=== PATIENT | female | born 1965 | race Caucasian/White ===

== ENCOUNTER 2018-08-09 00:57 | Outpatient (CLI) | payer BC, SELFPAY ==
[2018-08-09 10:31] LABS: ALT 38 U/L (12-78); AST 19 U/L (15-37); Albumin 3.8 g/dL (3.4-5.0); Alkaline Phosphatase 68 U/L (46-116); Anion Gap 9.4 mmol/L (3-11); BUN 17 mg/dL (7-18); Bilirubin, Total 0.4 mg/dL (0.2-1.0); CO2 29.6 mmol/L (21.0-32.0); CREATININE 0.73 mg/dL (0.55-1.02); Calcium 9.6 mg/dL (8.5-10.1); Chloride 105 mmol/L (98-107); Cholesterol 199 mg/dL (50-200); Glucose 87 mg/dL (70-100); HDL Cholesterol 73 mg/dL (40-60); LDL CHOLESTEROL 107 mg/dL (<100); Potassium 4.8 mmol/L (3.5-5.1); Sodium 144 mmol/L (136-145); Total Protein 7.5 g/dL (6.4-8.2); Triglyceride 52 mg/dL (30-150)
== END 2018-08-09 01:17 ==
DX: Z00.00 Encounter for general adult medical examination without abnormal findings (principal); I10 Essential (primary) hypertension; E78.5 Hyperlipidemia, unspecified; F17.200 Nicotine dependence, unspecified, uncomplicated; B00.9 Herpesviral infection, unspecified
CPT/HCPCS: 36415; 80053; 80061; 83721

== ENCOUNTER 2018-09-16 00:56 | Outpatient (CLI) | payer BC, SELFPAY ==
--- NOTE | 2018-09-16 07:30 | DI.MAMMO_ITS ---
SYMPTOM/DIAGNOSIS: SCREENING, Z12.31 MAMMOGRAMS: Mammograms were interpreted according to the usual protocol including computer analysis with CAD system, tomosynthesis and C view imaging. Comparison is made with exams from [id number]. The breasts are composed of scattered fibroglandular densities, breast density, Category B. No suspicious masses or suspicious microcalcifications are seen. There has been no significant change. IMPRESSION: Category 1, negative mammogram. Yearly screening mammography is recommended. [facility] ASSESSMENT OF FINDINGS: Negative. Category 1. Patient will receive a letter notifying them of these results. BI-RADS category B. There are scattered areas of fibroglandular density.
== END 2018-09-16 01:16 ==
DX: Z12.31 Encounter for screening mammogram for malignant neoplasm of breast (principal)
CPT/HCPCS: 77063; 77067

== ENCOUNTER 2018-11-01 08:30 | Emergency (ER) | payer BC, SELFPAY ==
[2018-11-01 08:38] VITALS: BP 141/89; PULSE 87; RESP 16; TEMP 36.7; O2SAT 100
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
--- NOTE | 2018-11-01 08:50 | DI.RAD_ITS ---
SYMPTOM/DIAGNOSIS: RIGHT SHOULDER PAIN S/P FALL RIGHT SHOULDER: There is a fracture of the distal clavicle with only slight displacement. The AC joint and glenohumeral joint appear intact. There are some degenerative changes of the glenoid as well as spurring at the undersurface of the acromion. The visualized portions of the right ribs appear intact. No pneumothorax is seen. IMPRESSION: Distal clavicle fracture.
--- NOTE | 2018-11-01 08:50 | DI.RAD_ITS ---
SYMPTOM/DIAGNOSIS: RIGHT UPPER CHEST PAIN, S/P FALL, SMALL ABRASION PA CHEST: The heart size is normal. No pneumothorax or rib fracture is seen. The lungs appear clear. No free air is seen beneath the diaphragm. IMPRESSION: No acute abnormality.
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
--- NOTE | 2018-11-01 09:21 | DI.CT_ITS ---
SYMPTOM/DIAGNOSIS: RIGHT SIDED CHEONDOISM PAIN, ABRASION S/P FALL NONCONTRAST HEAD CT: There is a scalp hematoma in the right frontal region. There is no evidence of skull fracture, or intracranial hemorrhage. The ventricles are normal in size. There is mild mucous retention at the floor of the left maxillary sinus. The orbits are unremarkable. The mastoid air cells appear clear. IMPRESSION: Scalp hematoma. No evidence of skull fracture or intracranial hemorrhage. CT CERVICAL SPINE: No fracture or subluxation is seen. There are mild degenerative disc changes at C6-7. There is no paraspinal hematoma. No pneumothorax is seen at the lung apices. IMPRESSION: Mild degenerative changes. No acute abnormality.
--- NOTE | 2018-11-01 09:42 | DI.VRAD_ITS ---
EXAM: CT Head Without Contrast EXAM DATE/TIME: 11/01/2018 8:56 AM CLINICAL HISTORY: 53 years old, female; Headache not specified; Patient HX: Right sided neck pain and arm tingling. ; Additional info: Right sided sikh pain, abrasion. TECHNIQUE: Imaging protocol: Axial computed tomography images of the head without contrast. Coronal and sagittal reformatted images were created and reviewed. Radiation optimization: All CT scans at this facility use at least one of these dose optimization techniques: automated exposure control; mA and/or kV adjustment per patient size (includes targeted exams where dose is matched to clinical indication); or iterative reconstruction. COMPARISON: No relevant prior studies available. FINDINGS: Brain: Normal. No hemorrhage. Unremarkable white matter. No mass effect. Ventricles: Normal. No ventriculomegaly. Bones/joints: No depressed calvarial fracture. Sinuses: Visualized sinuses are unremarkable. No fluid levels. Mastoid air cells: Visualized mastoid air cells are well aerated. No mastoid effusion. Soft tissues: Soft tissue hematoma over the right frontal bone measures 7 x 2 mm. IMPRESSION: 1. Soft tissue hematoma over the right frontal bone measures 7 x 2 mm. 2. No depressed calvarial fracture. 3. No acute intracranial hemorrhage. EXAM: CT Cervical Spine Without Contrast EXAM DATE/TIME: 11/01/2018 8:56 AM CLINICAL HISTORY: 53 years old, female; Headache not specified; Patient HX: Right sided neck pain and arm tingling. ; Additional info: Right sided sikh pain, abrasion. TECHNIQUE: Imaging protocol: Axial computed tomography images of the cervical spine without contrast. Coronal and sagittal reformatted images were created and reviewed. Radiation optimization: All CT scans at this facility use at least one of these dose optimization techniques: automated exposure control; mA and/or kV adjustment per patient size (includes targeted exams where dose is matched to clinical indication); or iterative reconstruction. COMPARISON: No relevant prior studies available. FINDINGS: Vertebrae: No acute fracture. Discs/Spinal canal/Neural foramina: Small disc osteophyte complex at C6-7. Soft tissues: Unremarkable. Lungs: Lung apices are normal. IMPRESSION: No acute fracture. Dictated and Authenticated by: Dionne Browning MD. Ordering:AYAN Bass MD
--- NOTE | 2018-11-01 09:44 | DI.VRAD_ITS ---
EXAM: XR Right Shoulder EXAM DATE/TIME: 11/01/2018 8:53 AM CLINICAL HISTORY: 53 years old, female; Other: Right shoulder pain S/P fall; Additional info: Right sided restorationist pain, abrasion. TECHNIQUE: Imaging protocol: XR Right shoulder. Views: 2 or more views. COMPARISON: No relevant prior studies available. FINDINGS: Bones/joints: Transverse fracture through the distal clavicle, with mild distraction and displacement. No extension into the acromioclavicular articulation. Glenohumeral joint intact. Soft tissues: Normal. IMPRESSION: Transverse fracture through the distal clavicle, with mild distraction and displacement. No extension into the acromioclavicular articulation. Dictated and Authenticated by: Dionne Browning MD. Ordering:AYAN Bass MD
--- NOTE | 2018-11-01 09:45 | DI.VRAD_ITS ---
EXAM: XR Chest, 1 View EXAM DATE/TIME: 11/01/2018 8:53 AM CLINICAL HISTORY: 53 years old, female; Other: Right upper chest pain S/P fall. Small abrasion; Additional info: Right sided jewish pain, abrasion. TECHNIQUE: Imaging protocol: XR of the chest, 1 view. COMPARISON: No relevant prior studies available. FINDINGS: Lungs: Unremarkable. No consolidation. Pleural space: Unremarkable. No pleural effusion. No pneumothorax. Heart/Mediastinum: Unremarkable. No cardiomegaly. Bones/joints: Distal right clavicular fracture as detailed on the shoulder report. IMPRESSION: Distal right clavicular fracture as detailed on the shoulder report. Dictated and Authenticated by: Dionne Browning MD. Ordering:AYAN Bass MD
== END 2018-11-01 10:00 | disposition home or self-care (01) ==
PROVIDERS: Emergency Provider Physician Assistant
DX: S42.031A Displaced fracture of lateral end of right clavicle, initial encounter for closed fracture (principal); S09.90XA Unspecified injury of head, initial encounter; S00.01XA Abrasion of scalp, initial encounter; V58.4XXA Person boarding or alighting a pick-up truck or van injured in noncollision transport accident, initial encounter; M54.2 Cervicalgia; F10.920 Alcohol use, unspecified with intoxication, uncomplicated
CPT/HCPCS: 99284; 70450; 71045; 72125; 73030; L0172; L3650

== ENCOUNTER 2018-11-17 09:48 | Outpatient (CLI) | payer BC, SELFPAY ==
--- NOTE | 2018-11-17 08:30 | DI.RAD_ITS ---
SYMPTOMS/DIAGNOSIS: F/U FRACTURE RIGHT CLAVICLE: Two views. Comparison 11/01/18. There is again seen a distal right clavicular fracture. The distal fracture fragment is superiorly displaced two-thirds of a shafts width relative to the clavicle. This displacement is new compared to the prior examination from 11/01/18. IMPRESSION: Distal right clavicular fracture with increased displacement compared to the prior examination.
== END 2018-11-17 10:08 ==
PROVIDERS: Visit Provider Student in an Organized Health Care Education/Training Program
DX: S42.031G Displaced fracture of lateral end of right clavicle, subsequent encounter for fracture with delayed healing (principal)
CPT/HCPCS: 73000

== ENCOUNTER 2018-12-15 10:02 | Outpatient (CLI) | payer BC, SELFPAY ==
--- NOTE | 2018-12-15 09:40 | DI.RAD_ITS ---
SYMPTOM/DIAGNOSIS: F/U RT DISTAL CLAVICLE FRACTURE RIGHT CLAVICLE: 12/15 A single view is obtained and shows fracture of the distal clavicle which appears to be healing with no significant interval change in alignment in comparison with examination of 11/17/18. There is dense callus visible at the fracture site.
== END 2018-12-15 10:22 ==
PROVIDERS: Visit Provider Student in an Organized Health Care Education/Training Program
DX: S42.001A Fracture of unspecified part of right clavicle, initial encounter for closed fracture (principal); X58.XXXA Exposure to other specified factors, initial encounter
CPT/HCPCS: 73000

== ENCOUNTER 2019-03-03 10:55 | Outpatient (CLI) | payer BC, SELFPAY ==
--- NOTE | 2019-03-03 10:21 | DI.RAD_ITS ---
EXAM: XR FINGER LT INDEX INDICATION: f/u fx. COMPARISON: FINGER(S)- LEFT-2+VIEW from 02/28/2019 TECHNIQUE: 2D digital imaging was performed. FINDINGS: There is again seen is amputation of the distal half of the distal phalanx of the left index finger. There is a comminuted fracture of the digital proximal half of the distal phalanx. This appears unc hanged. There is a lucency seen in the head of the middle phalanx of the index finger suspicious for nondisplaced fracture. There is soft tissue swelling of the index finger. Overall there does not a ppear to be any significant change in appearance of the left index finger compared to the prior exami [facility]. IMPRESSION: Stable fracture and amputation involving the left index finger.
== END 2019-03-03 11:15 ==
PROVIDERS: Visit Provider Orthopaedic Surgery
DX: S68.621D Partial traumatic transphalangeal amputation of left index finger, subsequent encounter (principal); S62.631D Displaced fracture of distal phalanx of left index finger, subsequent encounter for fracture with routine healing
CPT/HCPCS: 73140

== ENCOUNTER 2019-03-24 10:10 | Outpatient (CLI) | payer BC, SELFPAY ==
--- NOTE | 2019-03-24 09:47 | DI.RAD_ITS ---
EXAM: XR FINGER LT INDEX INDICATION: s/p traumatic amputation. COMPARISON: XR FINGER LT INDEX from 03/03/2019 TECHNIQUE: 2D digital imaging was performed. FINDINGS: There has been no change in the amputation of the distal half of the distal phalanx or change in the appearance of the surrounding soft tissues.
== END 2019-03-24 10:30 ==
PROVIDERS: Visit Provider Physician Assistant
DX: S68.62 Partial traumatic transphalangeal amputation of other and unspecified finger (principal)
CPT/HCPCS: 73140

== ENCOUNTER 2019-04-06 09:23 | Day surgery (SDC) | payer BC, SELFPAY ==
[2019-04-06] VITALS (7 sets, daily range): BP systolic 128–164; BP diastolic 90–118; PULSE 56–70; RESP 15–19; TEMP 36.4–36.8; O2SAT 97–100
[2019-04-06] MEDS: Lactated Ringers 1,000 ML 80 ML IV (10:13)
[2019-04-06] MEDS: ceFAZolin 2 GM/50 ML BAG IVPB (12:37)
[2019-04-06] MEDS: Bupivacaine 0.5% Pres-Free 30 ML VIAL (13:02)
--- NOTE | 2019-04-06 13:35 | PDOC.DSDIS_ITS ---
Discharge Plan Disposition Patient Disposition: HOME Condition: Good Discharge Details Reason For Visit: Revision amputation L IF Attending Provider: Sebastian Mortensen Primary Care Provider: Anjelica Vang Home Meds and New Rx's Prescriptions: New oxycodone-acetaminophen 5-325 mg tablet 1 tab PO Q6H PRN (Reason: pain) Qty: 14 RF: 0 No Action valacyclovir [Valtrex] 500 mg tablet 500 mg PO BID Qty: 10 RF: 6 ibuprofen 200 mg tablet 200 mg PO Q6H PRNRF: 0 acetaminophen [Tylenol Extra Strength] 500 mg Tablet 1,000 mg PO 4-6XD PRNRF: 0 Discharge Instructions Additional Instructions: Keep dressings dry and clean. Elevate L hand above heart level as much as possible overnite tonite. F/u with in one week for dressing change. Referrals: Sebastian Mortensen MD [ [facility] STAFF PHYSICIAN] - (f/u in one week.) Activity:: Activity as Tolerated Remove Dressings/Wound Care:: Do Not Remove Shower/Bathe:: Cover Diet:: As Tolerated Discharge Orders Discharge Orders: Discharge Order (Routine); Ordered 04/06/19 Ordered By: Sebastian Mortensen DS: Diagnosis Discharge Diagnosis (1) Partial traumatic amputation of finger through phalanx: Status: Acute
[2019-04-06] MEDS: oxyCODONE 5 mg/Acetaminophen 325 mg TAB 1 TAB PO (14:42)
--- NOTE | 2019-04-06 15:08 | ROE_ITS ---
DATE OF PROCEDURE: April 06, 2019 PREOPERATIVE DIAGNOSIS: Traumatic amputation left index finger through distal phalanx. POSTOPERATIVE DIAGNOSIS: Same. PROCEDURE: Revision of traumatic amputation of the left index finger. ANESTHESIA: General, Irwin Rubio CRNA SURGEON: Sebastian Mortensen M.D. INDICATIONS: This is a 53-year-old white female who sustained a traumatic amputation of the left ind ex finger through the distal phalanx approximately three weeks ago. This was treated initially at [facility] Emergency Room at [facility]. I have followed her since that time. She appeared to do well the first two weeks following her injury. However during the third week she developed severe pain. Examination showed a skin slough of the tip of the finger, resulting in exposed bone of the d istal phalanx fragment of the left index finger. Revision of the amputation by shortening the bone w as recommended to alleviate her pain and allow full healing. The risks and complications of the proc edure were explained to the patient in detail preoperatively. PROCEDURE: The patient was taken to the Operating Room on 04/06/19. She was placed supine on the ope rating table and a general anesthetic was administered. A proximal tourniquet was applied to the lef t upper arm and the left hand, wrist and forearm were prepped and draped free in the usual sterile fa shion. Under proximal tourniquet control, a distal flap was raised and circumferential sharp dissection was used to expose the distal fracture fragment of the distal phalanx. This fracture fragment was commin uted. I then excised the fragment, releasing the flexor profundus tendon from its insertion on the b ase of the fragment. At this point I thought that there was still too much tension on the skin flaps , so I shortened the middle phalanx by excising the distal condyles of the phalanx with a bone cutter and then smoothing it with a rongeur. Sharp dissection was used to remove all devitalized tissue fr om the skin edges. I was able to easily approximate the skin edges without tension using three inter rupted #3-0 nylon sutures. The wound was copiously irrigated with saline solution prior to closure. A digital block was then performed using 0.5% Marcaine solution for postoperative analgesia. The wo und was dressed with Xeroform gauze and then dressed with tube gauze. The tourniquet was released. The patient's anesthesia was reversed without complication and she was discharged to recovery room in good condition. The patient was discharged home from the Day Surgery Unit when fully recovered from her general anest hesia. She was given instructions to keep her dressings clean and dry for one week. She will follow -up in my office in one week for a dressing change and wound check. She will take Tylenol or ibuprof en for mild pain. I will give her a prescription for breakthrough pain of Oxycodone with APAP 5/325, one tablet every six hours, as needed.
== END 2019-04-06 15:25 | disposition home or self-care (01) ==
PROVIDERS: Visit Provider Orthopaedic Surgery
PROC: (CPT 26951; principal; 2019-04-06 10:45)
DX: S68.621A Partial traumatic transphalangeal amputation of left index finger, initial encounter (principal); X58.XXXA Exposure to other specified factors, initial encounter; G89.11 Acute pain due to trauma
CPT/HCPCS: 26951; J0690; J1100; J1885; J2250; J2405

== ENCOUNTER 2019-10-08 02:44 | Outpatient (CLI) | payer BC, SELFPAY ==
--- NOTE | 2019-10-08 07:43 | DI.MAMMO_ITS ---
EXAM: MG MAMMO SCREENING CLINICAL HISTORY: screening,Z12.39 TECHNIQUE: Mammograms were interpreted according to the usual protocol including computer analysis w [employer] CAD system, tomosynthesis and C-view imaging. COMPARISON: FINDINGS: The breasts are of moderate density with fairly symmetrical distribution of fibroglandular tissue. N o dominant mass or clumped microcalcification is identified in either breast. The current examinatio n is compared with previous examinations including September 2018 and there has been no gross interval sharma ge in appearance in comparison with the previous studies. IMPRESSION: No specific evidence of malignancy at this time. Routine screening examinations are suggested at yea rly intervals in this age group according to the ACS ACR guidelines. Category: BI-RADS Cat 1 - Negative Breast Density - Category B - Scattered areas of fibroglandular density
== END 2019-10-08 03:04 ==
DX: Z12.31 Encounter for screening mammogram for malignant neoplasm of breast (principal)
CPT/HCPCS: 77063; 77067

== ENCOUNTER 2019-10-08 03:16 | Outpatient (CLI) | payer BC, SELFPAY ==
[2019-10-08 08:18] LABS: ALT 36 U/L (14-59); AST 20 U/L (15-37); Albumin 3.8 g/dL (3.4-5.0); Alkaline Phosphatase 67 U/L (46-116); Anion Gap 7.2 mmol/L (3-11); BUN 20 mg/dL (7-18); Bilirubin, Total 0.4 mg/dL (0.2-1.0); CO2 28.8 mmol/L (21.0-32.0); CREATININE 0.98 mg/dL (0.55-1.02); Calcium 9.2 mg/dL (8.5-10.1); Calculated LDL 156 mg/dL (<100); Chloride 105 mmol/L (98-107); Cholesterol 259 mg/dL (<200); Glucose 103 mg/dL (74-106); HDL Cholesterol 76 mg/dL (40-60); Potassium 4.1 mmol/L (3.5-5.1); Sodium 141 mmol/L (136-145); Total Protein 7.3 g/dL (6.4-8.2); Triglyceride 139 mg/dL (<150)
== END 2019-10-08 03:36 ==
DX: E78.2 Mixed hyperlipidemia (principal); F32.9 Major depressive disorder, single episode, unspecified; F41.9 Anxiety disorder, unspecified; F51.04 Psychophysiologic insomnia; I10 Essential (primary) hypertension; E03.9 Hypothyroidism, unspecified
CPT/HCPCS: 36415; 80053; 80061

== ENCOUNTER 2020-04-04 08:14 | Emergency (ER) | payer BC, SELFPAY ==
--- NOTE | 2020-04-04 08:17 | W.ED.GENAD ---
Discharge Plan Disposition Patient Disposition: HOME Condition: Stable Discharge Details Clinical Impression: Chest wall injury Primary Care Provider: Anjelica Vang ED Provider: José Miguel Rosales Home Meds and New Rx's Prescriptions: Continued ibuprofen 200 mg tablet 200 mg PO Q6H PRNRF: 0 lisinopril-hydrochlorothiazide 20-25 mg tablet 1 tab PO DAILY Qty: 90 RF: 3 atorvastatin 10 mg tablet 10 mg PO QPM Qty: 90 RF: 3 sertraline 50 mg tablet 50 mg PO DAILY Qty: 90 RF: 3 valacyclovir [Valtrex] 500 mg tablet 500 mg PO BID Qty: 10 RF: 6 acetaminophen [Tylenol Extra Strength] 500 mg Tablet 1,000 mg PO 4-6XD PRNRF: 0 Discharge Instructions Instructions: Chest Wall Pain (ED) Additional Instructions: At this time x-rays are unremarkable. Gentle stretching as tolerated. Cool and/or warm compresses every 2 hours for 20 minutes. Incentive spirometer as directed. Advance activity as tolerated. Please watch for new or worsening symptoms and return to the ER for any concerns. I do recommend reaching out your primary care provider later today or tomorrow for outpatient reevaluation. Medical Decision Making 54-year-old female fell Saturday night injuring her anterior chest wall and her left posterior leg. She denies any LOC or any other distracting injuries. Denies headache, neck pain, numbness, tingling, weakness. She appears well, nontoxic. She has diffuse right-sided anterior chest wall as well as point sternal discomfort. There is no crepitus or ecchymosis. Skin is intact. Left lower extremity reveals diffuse posterior soft tissue discomfort but there is no bony point tenderness, shortening or rotation of the leg. She is able to ambulate without difficulty. We discussed options, will obtain x-ray of the chest and sternum. Low suspicion for pneumothorax, hip or pelvis fracture, etc. X-ray of the sternum and chest read by radiology as negative for acute disease process. Discussed results with patient. Will provide an incentive spirometer given she has chest discomfort that worsens with deep breaths. Discussed [id number]-[id number] medications such as Tylenol and/or Motrin, cool and/or warm compresses, gentle stretching. She was encouraged to return to the ER for new or worsening symptoms, otherwise recheck to her primary care provider for outpatient reevaluation. Upon discharge patient has no additional questions or concerns and is comfortable with this plan. Medical Records Medical records reviewed: Yes I reviewed the patient's medical records. HPI General Mode of arrival: ambulatory. Date/Time Provider Initiated Documentation: 04/04/20 08:14. Limitations to Documentation: no limitations. Information obtained by: patient. HPI Narrative: This is a 54-year-old female with history of hypertension, right clavicle fracture, anxiety, depression, presenting with anterior chest wall discomfort and posterior left leg discomfort that she sustained on Saturday. She reports that she slipped on Saturday falling forward, striking her anterior chest on the deck railing. She is unsure exactly how she injured her leg, whether she twisted it or the injury was sustained by striking the back. She does not recall striking her head but cannot not tell me with 100% certainty. She denies e, headache, neck pain, visual changes, shortness of breath, cough, abdominal pain, nausea, vomiting, change in bowel or bladder function, numbness, tingling, weakness. Patient is able to bear weight the pain is worse with movement in her leg. Pain in her leg is moderate. Pain in her chest is moderate-severe, worse with movement or taking a deep breath. She has been using hrni-cqn-[id number] medications with little relief. Related Data Home Medications Medication Instructions Recorded Confirmed ibuprofen 200 mg tablet 200 mg PO Q6H PRN 03/31/19 04/04/20 acetaminophen [Tylenol Extra 1,000 mg PO 4-6XD PRN 04/01/19 04/04/20 Strength] atorvastatin 10 mg tablet 10 mg PO QPM #90 tab 10/20/19 04/04/20 lisinopril 20 1 tab PO DAILY #90 tab 10/20/19 04/04/20 mg-hydrochlorothiazide 25 mg tablet sertraline 50 mg tablet 50 mg PO DAILY #90 tab 11/30/19 04/04/20 valacyclovir 500 mg tablet 500 mg PO BID #10 tab-cap 01/22/20 04/04/20 Previous Rx's Medication Instructions Recorded atorvastatin 10 mg tablet 10 mg PO QPM #90 tab 10/20/19 lisinopril 20 1 tab PO DAILY #90 tab 10/20/19 mg-hydrochlorothiazide 25 mg tablet sertraline 50 mg tablet 50 mg PO DAILY #90 tab 11/30/19 valacyclovir 500 mg tablet 500 mg PO BID #10 tab-cap 01/22/20 Allergies Allergy/AdvReac Type Severity Reaction Status Date / Time Sulfa (Sulfonamide Allergy SWELLING Verified 04/04/20 08:24 Antibiotics) General SLIM: 4 Review of Systems Constitutional Constitutional: Reports headache(s) Eyes Eyes: Denies change in vision ENT Ears, Nose, Mouth, and Throat: Reports headache(s) and Denies neck pain Cardiovascular Cardiovascular: Reports chest pain (Chest wall) and Denies dyspnea Respiratory Respiratory: Denies cough and Denies dyspnea Gastrointestinal Gastrointestinal: Denies abdominal pain, Denies nausea and Denies vomiting Genitourinary Genitourinary: Denies urinary incontinence Musculoskeletal Musculoskeletal: Denies neck pain, Denies numbness and Denies tingling Neurologic Neurologic: Reports headache(s), Denies numbness and Denies tingling PFSH Medical History Anxiety and depression Depression Essential hypertension Herpes simplex (02/22/15) Hyperlipidemia (02/22/15) Insomnia Knee pain, right Tobacco use disorder (03/27/11) Surgical History Colonoscopy - MAC (10/14/17) Ligation of fallopian tube Partial traumatic amputation of finger through phalanx s/p revision 04/06/2019 Family History Mother Diabetes Essential hypertension Hyperlipidemia Father , 77 Essential hypertension Heart disease Lung cancer Hyperlipidemia Sister Essential hypertension Hyperlipidemia Sister Heart disease Son No problems noted. Son No problems noted. Social History Smoking/Tobacco Use Status: Current every day Tobacco Type: cigarettes Tobacco: How many years used: 20 Quit status: considering quitting Second Hand Exposure: Yes Smoking risk assessment performed?: Yes Alcohol Intake: current Alcohol Intake frequency: a few times a week Alcohol type: beer Drug use: Never Substance use type: does not use Household members: children Housing: house Communication Needs: Corrective Lenses Do you need help understanding health information?: Rarely Pets and animals: Yes Pets and animals: cat(s) and other Details: Chickens Sexually active: Yes Do you think of yourself as: straight/heterosexual Current gender identity: female What is your relationship status?: refused to answer How often do you talk on the phone with friends or family?: twice per week How often do you get together with friends or relatives?: twice per week How often do you attend nondenominational or yazidism services?: decline to answer Do you belong to any clubs or organized social groups?: no Panel score (0-1 are the most socially isolated patients): 1 What type of physical activity do you participate in: walking Duration: 15-30 minutes/day Frequency: 5-6 times per week Sultana/Holiness: None Special sultana needs: No Seatbelt use: always Drive intox or ride w/intox drivers' cash clerk: No Do you feel safe at home: Yes Do you feel safe in your relationship?: Yes Exam Const General: cooperative, healthy appearing, comfortable and no acute distress Orientation: alert, awake and oriented x3 HENMT Head: normal to inspection, normocephalic and atraumatic Eyes General: appearance normal, both eyes and all related structures Alignment and Position: alignment normal Periorbital: periorbital findings normal Conjunctivae: conjunctivae normal Sclera: sclerae normal Cornea: corneas normal Pupils: PERRL EOM: EOM intact bilaterally Direct ophthalmoscopy: normal light reflex Neck Neck: normal visual inspection, full ROM, trachea midline, supple and nontender Chest Chest: normal inspection of the chest, no crepitus and tenderness (Sternum and diffuse right upper chest) Resp Effort & Inspection: normal respiratory effort and able to speak in complete sentences Auscultation: clear to auscultation bilaterally Cardio Rate: regular rate Rhythm: regular rhythm GI Inspection: normal to inspection Palpation: soft and nontender Back/Spine/Pelvis Back: No back tenderness Skin General skin exam: no rashes or lesions noted Neuro General: patient alert, patient awake, patient oriented x3, moves all extremities and no focal motor deficits Cognition: normal cognition Speech: speech normal Gait: normal gait Motor: muscle tone normal throughout Sensory Exam: no sensory deficits noted Extrem General: normal to inspection, full ROM and capillary refill normal Right upper extremity: normal to inspection and full ROM Left upper extremity: normal to inspection and full ROM Right lower extremity: normal to inspection and full ROM Left lower extremity: normal to inspection, full ROM, normal capillary refill and hip/thigh Details: tenderness (Diffuse mild posterior) and normal ROM; no swelling and no ecchymosis Psych Appearance: grossly normal Mental Status: mental status grossly normal
[2020-04-04 08:18] VITALS: BP 150/90; PULSE 92; RESP 20; TEMP 36.2; O2SAT 99
--- NOTE | 2020-04-04 08:30 | DI.RAD_ITS ---
EXAM: XR STERNUM CLINICAL HISTORY: fall, struck chest, point tenderness. TECHNIQUE: 2D digital imaging was performed. COMPARISON: CR XR CHEST 2V PA LATERAL from 04/04/2020 FINDINGS: There is no evidence of obvious sternal fracture nor abnormal density in the retrosternal space. IMPRESSION: No sternal fracture seen. DATA REPOSITORY: RADIATION DOSE DELIVERED:
--- NOTE | 2020-04-04 08:30 | DI.RAD_ITS ---
EXAM: XR CHEST 2V PA LATERAL CLINICAL HISTORY: fall, struck chest. TECHNIQUE: 2D digital imaging was performed. COMPARISON: CR XR CHEST 1V IN DI DEPT from 11/01/2018 FINDINGS: Heart size is normal. The mediastinum is not widened. Lungs are clear. No infiltrates nor pleural effusions. No pneumothorax. No obvious acute fractures. Deformity of the lateral aspect of the right clavicle is noted, this subsequent to fracture seen on 0 11/01/2018. Impression: No acute pulmonary findings. Healing fracture lateral right clavicle. DATA REPOSITORY: RADIATION DOSE DELIVERED:
[2020-04-04 09:15] VITALS: BP 133/93; PULSE 79; RESP 16; O2SAT 98
[2020-04-04 09:56] VITALS: BP 140/86; PULSE 90; RESP 14; TEMP 36.6; O2SAT 98
== END 2020-04-04 09:56 | disposition home or self-care (01) ==
PROVIDERS: Emergency Provider Physician Assistant
DX: S29.091A Other injury of muscle and tendon of front wall of thorax, initial encounter (principal); M79.605 Pain in left leg; W00.1XXA Fall from stairs and steps due to ice and snow, initial encounter; I10 Essential (primary) hypertension
CPT/HCPCS: 99284; 71046; 71120; 99285

== ENCOUNTER 2020-05-17 09:55 | Outpatient (CLI) | payer BC, SELFPAY ==
[2020-05-18 16:34] LABS: COVID-19 RT-PCR UVMMC Result Negative (Negative)
== END 2020-05-17 10:15 ==
DX: Z20.822 Contact with and (suspected) exposure to COVID-19 (principal)
CPT/HCPCS: U0003

== ENCOUNTER 2020-07-15 22:21 | Outpatient (REF) | payer BC, SELFPAY ==
[2020-07-15 20:46] LABS: Bilirubin Negative (Negative); Blood Negative (Negative); Clarity Clear (Clear); Glucose Negative (Negative); Ketones Negative (Negative); Leukocyte Esterase Negative (Negative); Nitrite Negative (Negative); Specific Gravity 1.015 (1.005-1.025); Urobilinogen 0.2 EU/dL (Up TO 0.2); pH 6.5 (5-8)
== END 2020-07-15 22:22 | disposition home or self-care (01) ==
LOC: NCHCN 22:21
PROVIDERS: Visit Provider Physician Assistant
DX: N39.0 Urinary tract infection, site not specified (principal)
CPT/HCPCS: 81003

== ENCOUNTER 2020-08-01 04:30 | Outpatient (CLI) | payer BC, SELFPAY ==
[2020-08-01 08:12] LABS: Anion Gap 7.2 mmol/L (3-11); BUN 27 mg/dL (7-18); CO2 28.8 mmol/L (21.0-32.0); CREATININE 0.9 mg/dL (0.55-1.02); Calcium 9.2 mg/dL (8.5-10.1); Calculated LDL 107 mg/dL (<100); Chloride 108 mmol/L (98-107); Cholesterol 198 mg/dL (<200); Glucose 106 mg/dL (74-106); HDL Cholesterol 62 mg/dL (40-60); Potassium 4.2 mmol/L (3.5-5.1); Sodium 144 mmol/L (136-145); Triglyceride 145 mg/dL (<150)
== END 2020-08-01 04:31 | disposition home or self-care (01) ==
LOC: LBO 04:30
DX: Z00.00 Encounter for general adult medical examination without abnormal findings (principal); E78.2 Mixed hyperlipidemia
CPT/HCPCS: 36415; 80048; 80061

== ENCOUNTER 2020-08-04 10:23 | Outpatient (REF) | payer BC, SELFPAY ==
--- NOTE | 2020-08-04 08:30 | PAPFT_PTH ---
PATIENT: Tammy Maya LOC: [facility] U#:[id number] AGE/SX: 54/F ROOM: RE08/04/[address]: Anjelica Vang APRN : 1965 BED: DIS: 08/04/2020 SPEC #: [id number] RECD: 08/05/20 12:55 STATUS: KELLI LINDQUIST #: [id number] ROBERT: 08/04/20 08:[address]: Anjelica Vang DEPT: [facility] Cytology RECD BY: Erika Galvan Tissues: 1 - CX/ENDOCX FOR PAP SMEARS Procedures: PAP THIN PREP/UVM Screening HPV DNA PROBE Comments: [id number]
== END 2020-08-04 10:24 | disposition home or self-care (01) ==
LOC: LBN 10:23
DX: Z12.4 Encounter for screening for malignant neoplasm of cervix (principal); Z11.51 Encounter for screening for human papillomavirus (HPV)
CPT/HCPCS: 88142; 87624

== ENCOUNTER 2021-03-07 00:53 | Outpatient (CLI) | payer BC, SELFPAY ==
--- NOTE | 2021-03-07 06:45 | DI.MAMMO_ITS ---
Exam(s) MAMMO SCREENING EXAM: MAMMO SCREENING CLINICAL HISTORY: screening TECHNIQUE: Mammograms were interpreted according to the usual protocol including computer analysis w [employer] CAD system, tomosynthesis and C-view imaging. COMPARISON: FINDINGS: The breasts are of moderate density with fairly symmetrical distribution of fibroglandular tissue. N o dominant mass or clumped microcalcification is identified either breast. The current examination i s compared with previous examinations including October 2019 and there has been no gross interval change in appearance in comparison with the prior studies. IMPRESSION: No specific evidence of malignancy at this time. Routine screening examinations are suggested at yea rly intervals in this age group according to the ACS ACR guidelines. BI-RADS Category 1 - Negative Breast Density - Category B - Scattered areas of fibroglandular density
== END 2021-03-07 01:13 ==
DX: Z12.31 Encounter for screening mammogram for malignant neoplasm of breast (principal)
CPT/HCPCS: 77063; 77067

== ENCOUNTER 2021-06-24 15:41 | Outpatient (REF) | payer BC, SELFPAY ==
[2021-06-27 18:24] LABS: COVID-19 RT-PCR UVMMC Result Presumptive Positive (Negative)
== END 2021-06-24 15:42 | disposition home or self-care (01) ==
LOC: LBN 15:41
PROVIDERS: Visit Provider Nurse Practitioner Family
DX: Z20.822 Contact with and (suspected) exposure to COVID-19 (principal)
CPT/HCPCS: U0003

== ENCOUNTER 2021-08-16 02:46 | Outpatient (CLI) | payer BC, SELFPAY ==
[2021-08-16 09:28] LABS: ALT 25 U/L (14-59); AST 17 U/L (15-37); Albumin 4.1 g/dL (3.4-5.0); Alkaline Phosphatase 68 U/L (46-116); Anion Gap 9.5 mmol/L (3-11); BUN 18 mg/dL (7-18); Bilirubin, Total 0.6 mg/dL (0.2-1.0); CO2 29.5 mmol/L (21.0-32.0); CREATININE 0.9 mg/dL (0.55-1.02); Calcium 9.7 mg/dL (8.5-10.1); Calculated LDL 90 mg/dL (<100); Chloride 104 mmol/L (98-107); Cholesterol 173 mg/dL (<200); Glucose 100 mg/dL (74-106); HDL Cholesterol 64 mg/dL (40-60); Potassium 4.4 mmol/L (3.5-5.1); Sodium 143 mmol/L (136-145); Total Protein 7.5 g/dL (6.4-8.2); Triglyceride 99 mg/dL (<150)
== END 2021-08-16 02:47 | disposition home or self-care (01) ==
LOC: LBO 02:46
DX: Z00.00 Encounter for general adult medical examination without abnormal findings (principal); E78.2 Mixed hyperlipidemia
CPT/HCPCS: 36415; 80053; 80061

== ENCOUNTER → 2022-03-09 00:01 | Outpatient (CLI) | payer BC, SELFPAY ==
--- NOTE | 2022-03-09 06:45 | DI.MAMMO_ITS ---
Exam(s) MAMMO SCREENING EXAM: MAMMO SCREENING CLINICAL HISTORY: screening,z12.39. TECHNIQUE: Bilateral full field digital CC and MLO mammographic images were obtained with 3D tomosyn thesis and utilizing computer aided detection (CAD). COMPARISON: Prior mammograms were reviewed. FINDINGS: There has been no significant change in the appearance and distribution of the fibroglandular tissue. There are no CAD designations. There are no new spiculated masses nor malignant appearing microcalcification groups. There is no significant architectural distortion nor skin thickening-retraction. IMPRESSION: No radiographic evidence of malignancy. BI-RADS Category 1 - Negative Breast Density - Category B - Scattered areas of fibroglandular density Breast density Category C or D implies that the patient has dense breast tissue. Dense breast tissue can make it harder to find cancer on a mammogram. Dense breast tissue is also associated with an incr eased risk of breast cancer. This information about the result of the mammogram report was provided to the patient to raise their awareness. Use this report when you speak with the patient about their risks for breast cancer, which includes their family history. At that time, you may recommend additional screening tests (Ultrasoun d or MRI) as these tests may add significant information. A negative radiographic report should not delay biopsy if a dominant or clinically suspicious mass is present. Up to ten percent of cancers are not identified on mammography. A negative report may reinforce clinical impression. Adenosis and dense breasts may obscure an underlying neoplasm. False positive reports average 6 to 10%. Patient will receive a letter notifying them of these results.
== END ==
DX: Z12.31 Encounter for screening mammogram for malignant neoplasm of breast (principal)
CPT/HCPCS: 77063; 77067

== ENCOUNTER 2022-09-09 09:11 | Emergency (ER) | payer BC, SELFPAY ==
[2022-09-09 09:15] VITALS: BP 139/90; PULSE 78; RESP 18; O2SAT 97
--- NOTE | 2022-09-09 09:28 | ED.GENADUL_ITS ---
Discharge Plan Disposition Patient Disposition: Home Condition: Stable Discharge Details Clinical Impression: Contusion of right shoulder region Primary Care Provider: Errol Mckeon ED Provider: Puneet Cervantes Home Meds and New Rx's Prescriptions: Continued ibuprofen 200 mg tablet 200 mg PO Q6H PRN atorvastatin 10 mg tablet 10 mg PO QPM Qty: 90 3RF hydrochlorothiazide 25 mg tablet 25 mg PO QAM Qty: 90 3RF lisinopril 30 mg tablet 30 mg PO DAILY Qty: 90 3RF sertraline 50 mg tablet 50 mg PO DAILY Qty: 90 3RF Rx Instructions: take 1 full tab (50mg) every PM valacyclovir [Valtrex] 500 mg tablet 500 mg PO BID PRN (Reason: herpes simplex) Qty: 30 3RF Rx Instructions: 1 tab BID x 5 days for outbreaks acetaminophen [Tylenol Extra Strength] 500 mg Tablet 1,000 mg PO 4-6XD PRN Discharge Instructions Instructions: Contusion in Adults (ED) Additional Instructions: if pain continues in a week follow up with your primary care provider if you feel more ill, have severe worsening pain or new pain such as chest pain return to the emergency department Medical Decision Making 57 yo female comes in with right shoulder pain s/p fall yesterday. She was carrying a beam yesterday when she tripped and fell back landing on her right shoulder, denies preceding symptoms such as lightheadedness or chest pain, states was a mechanical fall. No loc. Has no head pain, neck pain, back pain, chest or abdomen pain. She has tenderness without visible or palpable deformity over the lateral right clavicle and also anterior shoulder. She can range the shoulder to about 90 degrees in abduction then limited by pain. No pain or tenderness on exam in the humerus, elbow, forearm, wrist or hand. No midline c/t/l spine tenderness. Suspect contusion vs strain, will proceed with xrays to further evaluate imaging on my reads show no acute findings, vrad turn aroud time is 2 hours currently, she is stable. Will provide sling and will call if vrad read has abnormalities. Advised to f/u with pcp in a week if pain continues, return precautions given Differential Diagnosis Differential Diagnosis: strain, contusion, fracture Imaging Data Radiologic Study: Attestation: I personally reviewed and interpreted this imaging study as follows: Imaging: X-Ray My impression: no acute findings clavicle fracture Radiologic Study #2: Attestation: I personally reviewed and interpreted this imaging study as follows: Imaging: X-Ray My impression: no acute findings shoulder xray HPI General Mode of arrival: ambulatory . Date/Time Provider Initiated Documentation: 09/09/22 09:22 . Limitations to Documentation: no limitations . Information obtained by: patient . History of Present Illness 57 year old F presents to the emergency department with the chief complaint of right shoulder/clavicle pain, described as moderate, Quality is described as aching, and is localized to the right and upper extremity. Patient reports no radiation. Patient started experiencing this day(s) (1) and it has been constant. Rest improves symptom(s), Movement worsens symptoms . Patient notes no other symptoms.. Patient did receive the following treatments prior to arrival, none Related Data Home Medications Medication Instructions Recorded Confirmed ibuprofen 200 mg tablet 200 mg PO Q6H PRN 03/31/19 09/09/22 acetaminophen 500 mg tablet 1,000 mg PO 4-6XD PRN 04/01/19 09/09/22 (Tylenol Extra Strength) atorvastatin 10 mg tablet 10 mg PO QPM #90 tabs 06/27/22 09/09/22 hydrochlorothiazide 25 mg tablet 25 mg PO QAM #90 tabs 06/27/22 09/09/22 lisinopril 30 mg tablet 30 mg PO DAILY #90 tabs 06/27/22 09/09/22 sertraline 50 mg tablet 50 mg PO DAILY Anxiety and 06/27/22 09/09/22 depression #90 tabs valacyclovir 500 mg tablet 500 mg PO BID PRN herpes simplex 06/27/22 09/09/22 (Valtrex) #30 tab-caps Previous Rx's Medication Instructions Recorded atorvastatin 10 mg tablet 10 mg PO QPM #90 tabs 06/27/22 hydrochlorothiazide 25 mg tablet 25 mg PO QAM #90 tabs 06/27/22 lisinopril 30 mg tablet 30 mg PO DAILY #90 tabs 06/27/22 sertraline 50 mg tablet 50 mg PO DAILY Anxiety and 06/27/22 depression #90 tabs valacyclovir 500 mg tablet 500 mg PO BID PRN herpes simplex 06/27/22 (Valtrex) #30 tab-caps Allergies Allergy/AdvReac Type Severity Reaction Status Date / Time Sulfa (Sulfonamide Allergy SWELLING Verified 09/09/22 09:17 Antibiotics) General Stated Complaint: Fall/Non TraumaCriteria SLIM: 4 Review of Systems All systems reviewed & are unremarkable except as noted in HPI and below Constitutional Constitutional: Denies chills, Denies fever(s) and Denies weakness Cardiovascular Cardiovascular: Denies chest pain and Denies dyspnea Respiratory Respiratory: Denies cough and Denies dyspnea Gastrointestinal Gastrointestinal: Denies abdominal pain, Denies nausea and Denies vomiting Musculoskeletal Musculoskeletal: Denies joint swelling Neurologic Neurologic: Denies weakness PFSH All Active Problems (Updated 09/09/22 @ 10:08 by Puneet Cervantes MD) Tobacco use disorder (Chronic 03/27/11) Hyperlipidemia (Chronic 02/22/15) Herpes simplex (Chronic 02/22/15) Insomnia (Chronic) Anxiety and depression (Acute) Right clavicle fracture (Acute 11/01/18) 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 Essential hypertension (Acute) Knee pain, right (Acute) Benign paroxysmal positional vertigo (Acute) Elevated fasting glucose (Acute) Immunization counseling (Acute) Plantar fasciitis of right foot (Acute) Obesity (BMI 30.0-34.9) (Chronic) 08/2021 - Bone Broth Diet - down 17 lbs past 5 months Left groin pain (Acute) Contusion of right shoulder region (Acute) Medical History Depression Surgical History Colonoscopy - MAC (10/14/17) Ligation of fallopian tube Family History Mother Diabetes Essential hypertension Hyperlipidemia Father , 77 Essential hypertension Heart disease Lung cancer Hyperlipidemia Sister Essential hypertension Hyperlipidemia Sister Heart disease Son No problems noted. Son No problems noted. Social History (Updated 08/13/22 @ 14:50 by Dione Hinkle) Smoking/Tobacco Use Status: Current every day Tobacco Type: cigarettes Tobacco: How many years used: 30 Quit status: considering quitting Second Hand Exposure: Yes Smoking risk assessment performed?: Yes Alcohol Intake: current Alcohol Intake frequency: a few times a week Alcohol type: beer Drug use: Occasionally Substance use type: marijuana Counseling given: No Counseling provided: none Household members: none Housing: apartment Communication Needs: None Do you need help understanding health information?: Never Pets and animals: Yes Pets and animals: cat(s) Sexually active: Yes Do you think of yourself as: straight/heterosexual Current gender identity: female What is your relationship status?: How often do you talk on the phone with friends or family?: three or more times per week How often do you get together with friends or relatives?: twice per week How often do you attend pentecostal or baptist services?: decline to answer Do you belong to any clubs or organized social groups?: no Panel score (0-1 are the most socially isolated patients): 1 What type of physical activity do you participate in: walking Duration: 15-30 minutes/day Frequency: 5-6 times per week Sultana/Church: None Special sultana needs: No Seatbelt use: always Helmet use: No 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 Do you feel safe at home: Yes Do you feel safe in your relationship?: Yes Exam Const General: no acute distress Orientation: alert HENMT Head: normal to inspection Ears: external ears normal General nose exam: external nose normal Mouth: moist mucous membranes Eyes General: appearance normal, both eyes and all related structures Neck Neck: normal visual inspection Resp Effort & Inspection: normal respiratory effort and able to speak in complete sentences Cardio Rate: regular rate Skin General skin exam: no rashes or lesions noted Neuro General: patient alert and patient oriented x3 Extrem General: normal to inspection and capillary refill normal Psych Mental Status: mental status grossly normal Course Vital Signs Vital signs: Vital Signs Pulse 78 09/09/22 09:15 Respiratory Rate 18 09/09/22 09:15 Blood Pressure 139/90 09/09/22 09:15 Pulse Oximetry 97 09/09/22 09:15 Pulse 78 09/09/22 09:15 Respiratory Rate 18 09/09/22 09:15 Respiratory Effort Normal 09/09/22 09:19 Blood Pressure 139/90 09/09/22 09:15 Pulse Oximetry 97 09/09/22 09:15 Oxygen Delivery Method Room Air 09/09/22 09:15 Oxygen Flow Rate 0 09/09/22 09:15 Pain Level 7 09/09/22 09:19
[2022-09-09] MEDS: Ibuprofen 600 MG TAB PO (09:40)
--- NOTE | 2022-09-09 09:53 | DI.RAD_ITS ---
Exam(s) XR CLAVICLE RT EXAM: XR CLAVICLE RT CLINICAL HISTORY: pain s/p fall. TECHNIQUE: 2D digital imaging was performed. COMPARISON: CR XR CLAVICLE RT from 11/17/2018 CR XR CLAVICLE RT from 12/15/2018 FINDINGS: No evidence of acute fracture of the clavicle. Healed fracture deformity noted in the lateral aspect of the clavicle. AC joint is not dislocated but exhibits some degenerative change. No osseous lesi ons. No radiopaque foreign body. IMPRESSION: Healed fracture deformity in the lateral aspect of the right clavicle. DATA REPOSITORY: RADIATION DOSE DELIVERED:
--- NOTE | 2022-09-09 09:54 | DI.RAD_ITS ---
Exam(s) XR SHOULDER RT COMPLETE 2+V EXAM: XR SHOULDER RT COMPLETE 2+V CLINICAL HISTORY: pain s/p fall. TECHNIQUE: 2D digital imaging was performed. COMPARISON: CR XR shoulder RT complete 2+V from 11/01/2018 FINDINGS: Five views: No evidence of acute fracture or dislocation of glenohumeral joint. No abnormal soft tissue calcific ations in the subacromial space. However, there is a osteophytic bony ridge on the undersurface of t he acromion most probably related to the [place] 0 acromial ligament. May be causing an element of impi ngement. There is also significant degenerative change with downgoing osteophytes evident in the AC joint which may also be causing some impingement. There is also a small bony excrescence off the out er aspect of the greater tuberosity. There is a deformity in the lateral aspect of the ipsilateral clavicle which has appearance of a heal ed fracture site. IMPRESSION: No acute fractures. Subacromial space findings as above. Probable impingement upon the rotator cuff mechanism. Degenerative changes in the AC joint. Healed fracture in the lateral 3rd of the right clavicle. DATA REPOSITORY: RADIATION DOSE DELIVERED:
--- NOTE | 2022-09-09 10:19 | DI.VRAD_ITS ---
PROCEDURE INFORMATION: Exam: XR Right Clavicle, Complete Exam date and time: 09/09/2022 9:38 AM Age: 57 years old Clinical indication: Other: Pain S/P fall TECHNIQUE: Imaging protocol: Radiologic exam of the right clavicle. Complete exam. Views: Any number of views. COMPARISON: CR XR CLAVICLE RT 12/15/2018 10:07 AM FINDINGS: Bones/joints: Chronic clavicular deformity distally and possible faint lucency along the inferior aspect. No dislocation Age-indeterminate right 2nd fracture Soft tissues: Normal. IMPRESSION: Chronic clavicular deformity with possible superimposed faint lucency inferiorly. Acute on chronic fracture can not be completely excluded Dictated and Authenticated by: Sai Guerrero MD. Ordering:LEIGH Teixeira MD
--- NOTE | 2022-09-09 10:19 | DI.VRAD_ITS ---
PROCEDURE INFORMATION: Exam: XR Right Shoulder Exam date and time: 09/09/2022 9:38 AM Age: 57 years old Clinical indication: Other: Pain S/P fall TECHNIQUE: Imaging protocol: Radiologic exam of the right shoulder. Views: 2 or more views. COMPARISON: CR XR shoulder RT complete 2+V 11/01/2018 9:16 AM FINDINGS: Bones/joints: Chronic deformity of the distal clavicle. Question faint lucency along the inferior aspect of the distal clavicle Degenerative changes at the acromioclavicular joint and right humeral head. Age-indeterminate right 2nd rib fracture Soft tissues: Normal. IMPRESSION: Question acute on chronic right distal clavicular fracture Age-indeterminate right 2nd rib fracture Dictated and Authenticated by: Sai Guerrero MD. Ordering:LEIGH Teixeira MD
== END 2022-09-09 10:34 | disposition home or self-care (01) ==
PROVIDERS: Emergency Provider Emergency Medicine; PCP Nurse Practitioner Family
DX: S40.011A Contusion of right shoulder, initial encounter (principal); W01.198A Fall on same level from slipping, tripping and stumbling with subsequent striking against other object, initial encounter
CPT/HCPCS: 99284; 73000; 73030; 99283

== ENCOUNTER 2022-11-27 03:29 | Outpatient (CLI) | payer BC, SELFPAY ==
[2022-11-27 10:00] LABS: ALT 30 U/L (14-59); AST 18 U/L (15-37); Albumin 3.6 g/dL (3.4-5.0); Alkaline Phosphatase 81 U/L (46-116); Anion Gap 9.8 mmol/L (3-11); BUN 23 mg/dL (7-18); Bilirubin, Total 0.4 mg/dL (0.2-1.0); CO2 27.2 mmol/L (21.0-32.0); CREATININE 0.8 mg/dL (0.55-1.02); Calcium 9.2 mg/dL (8.5-10.1); Calculated LDL 98 mg/dL (<100); Chloride 105 mmol/L (98-107); Cholesterol 193 mg/dL (<200); Estimated GFR 86.96 (mL/min/1.73m2); Glucose 102 mg/dL (74-106); HDL Cholesterol 60 mg/dL (40-60); Potassium 3.9 mmol/L (3.5-5.1); Sodium 142 mmol/L (136-145); Total Protein 7.6 g/dL (6.4-8.2); Triglyceride 177 mg/dL (<150)
== END 2022-11-27 03:30 | disposition home or self-care (01) ==
LOC: LBO 03:29
PROVIDERS: PCP Nurse Practitioner Family; Visit Provider Nurse Practitioner Family
DX: E78.2 Mixed hyperlipidemia (principal); I10 Essential (primary) hypertension
CPT/HCPCS: 36415; 80053; 80061

== ENCOUNTER → 2023-03-11 00:12 | Outpatient (CLI) | payer BC, SELFPAY ==
--- NOTE | 2023-03-11 07:41 | DI.MAMMO_ITS ---
Exam(s) MAMMO SCREENING EXAM: MAMMO SCREENING CLINICAL HISTORY: screening,z12.39 TECHNIQUE: Bilateral full field digital CC and MLO mammographic images were obtained with 3D tomosyn thesis and utilizing computer aided detection (CAD). COMPARISON: Available for comparison. FINDINGS: Masses/Architectural Distortion: None seen. Microcalcifications: No suspicious pleomorphic-type are seen. Skin Thickening/Nipple Retraction: None. IMPRESSION: 1. No significant interval change with no specific features of malignancy noted. 2. Unless there is more urgent need, screening mammography is recommended, as per [place] [employer] guidelines. BI-RADS Category 1 - Negative Breast Density - Category B - Scattered areas of fibroglandular density Breast density category C or D implies that the patient has dense breast tissue. Dense breast tissue is very common and is not abnormal but dense breast tissue can make it harder to find cancer on a ma mmogram. Also, dense breast tissue may increase their breast cancer risk. This information about the result of the mammogram report was provided to the patient to raise their awareness. Use this report when you speak with the patient about their risks for breast cancer, which includes their family hist ory. At that time, you may recommend for more screening tests (Ultrasound or MRI) as they might be us eful based on their risk. A negative radiographic report should not delay biopsy if a dominant or clinically suspicious mass is present. Up to ten percent of cancers are not identified on mammography. A negative report may reinforce clinical impression. Adenosis and dense breasts may obscure an underlying neoplasm. False positive reports average 6 to 10%. Patient will receive a letter notifying them of these results.
== END ==
PROVIDERS: PCP Nurse Practitioner Family; Visit Provider Nurse Practitioner Family
DX: Z12.31 Encounter for screening mammogram for malignant neoplasm of breast (principal); R92.323 Mammographic fibroglandular density, bilateral breasts
CPT/HCPCS: 77063; 77067

== ENCOUNTER 2023-05-01 01:28 | Outpatient (CLI) | payer BC, SELFPAY ==
[2023-05-02 10:17] LABS: Lyme Ab w Rflx to Lyme Confirm Negative (Negative)
== END 2023-05-01 01:29 | disposition home or self-care (01) ==
PROVIDERS: PCP Nurse Practitioner Family; Visit Provider Family Medicine
DX: R53.83 Other fatigue (principal)
CPT/HCPCS: 36415; 86618

== ENCOUNTER 2023-12-11 03:43 | Outpatient (CLI) | payer BC, SELFPAY ==
[2023-12-11 09:58] LABS: ALT 30 U/L (14-59); AST 17 U/L (15-37); Albumin 3.8 g/dL (3.4-5.0); Alkaline Phosphatase 74 U/L (46-116); Anion Gap 11.8 mmol/L (3-11); BUN 14 mg/dL (7-18); Bilirubin, Total 0.45 mg/dL (0.2-1.0); CO2 27.2 mmol/L (21.0-32.0); CREATININE 0.9 mg/dL (0.55-1.02); Calcium 9.8 mg/dL (8.5-10.1); Calculated LDL 96 mg/dL (<100); Chloride 103 mmol/L (98-107); Cholesterol 174 mg/dL (<200); Estimated GFR 75.03 (mL/min/1.73m2); Ferritin 169 ng/mL (8-252); Glucose 97 mg/dL (74-106); HDL Cholesterol 58 mg/dL (40-60); Potassium 4.1 mmol/L (3.5-5.1); Sodium 142 mmol/L (136-145); TSH (W/Ref FT4) 1.49 uIU/mL (0.36-3.74); Total Protein 7.9 g/dL (6.4-8.2); Triglyceride 103 mg/dL (<150)
== END 2023-12-11 03:44 | disposition home or self-care (01) ==
LOC: LBO 03:43
PROVIDERS: PCP Nurse Practitioner Family; Visit Provider Nurse Practitioner Family
DX: E78.2 Mixed hyperlipidemia (principal); F51.04 Psychophysiologic insomnia
CPT/HCPCS: 36415; 80053; 80061; 82728; 84443

== ENCOUNTER 2024-03-12 02:12 | Outpatient (CLI) | payer BC, SELFPAY ==
--- NOTE | 2024-03-12 06:30 | DI.MAMMO_ITS ---
Exam(s) MAMMO SCREENING EXAM: MAMMO SCREENING CLINICAL HISTORY: screening,z12.39 TECHNIQUE: Bilateral full field digital CC and MLO mammographic images were obtained with 3D tomosyn thesis and utilizing computer aided detection (CAD). COMPARISON: Available for comparison. FINDINGS: Masses/Architectural Distortion: None seen. Microcalcifications: No suspicious pleomorphic-type are seen. Skin Thickening/Nipple Retraction: None. IMPRESSION: 1. No significant interval change with no specific features of malignancy noted. 2. Unless there is more urgent need, screening mammography is recommended, as per [place] guidelines. BI-RADS Category 1 - Negative Breast Density - Category B - Scattered areas of fibroglandular density Breast density category C or D implies that the patient has dense breast tissue. Dense breast tissue is very common and is not abnormal but dense breast tissue can make it harder to find cancer on a ma mmogram. Also, dense breast tissue may increase their breast cancer risk. This information about the result of the mammogram report was provided to the patient to raise their awareness. Use this report when you speak with the patient about their risks for breast cancer, which includes their family hist ory. At that time, you may recommend for more screening tests (Ultrasound or MRI) as they might be us eful based on their risk. A negative radiographic report should not delay biopsy if a dominant or clinically suspicious mass is present. Up to ten percent of cancers are not identified on mammography. A negative report may reinforce clinical impression. Adenosis and dense breasts may obscure an underlying neoplasm. False positive reports average 6 to 10%. Patient will receive a letter notifying them of these results.
== END 2024-03-12 02:32 ==
PROVIDERS: PCP Nurse Practitioner Family; Visit Provider Nurse Practitioner Family
DX: Z12.31 Encounter for screening mammogram for malignant neoplasm of breast (principal); R92.323 Mammographic fibroglandular density, bilateral breasts
CPT/HCPCS: 77063; 77067

== ENCOUNTER → 2025-03-15 02:20 | Outpatient (CLI) | payer BC, SELFPAY ==
--- NOTE | 2025-03-15 06:15 | DI.MAMMO_ITS ---
Exam(s) MAMMO SCREENING EXAM: MAMMO SCREENING CLINICAL HISTORY: screening,z12.39. TECHNIQUE: Bilateral full field digital CC and MLO mammographic images were obtained with 3D tomosynthesis and utilizing computer aided detection (CAD). COMPARISON: Prior mammograms were reviewed. FINDINGS: There has been no significant change in the appearance and distribution of the fibroglandular tissue. No new right breast findings. In the left breast there is an asymmetric density-possible nodule measuring approximately 9 x 7 mm and located 4 cm in from the nipple on the MLO view and slightly lateral of center. There are no malignant-appearing microcalcification groups in this region or elsewhere in either breast There is no significant architectural distortion nor skin thickening-retraction. IMPRESSION: 1. No radiographic evidence of malignancy in the right breast. 2. Asymmetric density-possible nodule in the left breast as described above. Spot compression views and ultrasound recommended. BI-RADS Category 0 - Incomplete: Need additional imaging evaluation Breast Density - Category B - There are scattered areas of fibroglandular density. Breast density Category C or D implies that the patient has dense breast tissue. Dense breast tissue can make it harder to find cancer on a mammogram. Dense breast tissue is also associated with an increased risk of breast cancer. This information about the result of the mammogram report was provided to the patient to raise their awareness. Use this report when you speak with the patient about their risks for breast cancer, which includes their family history. At that time, you may recommend additional screening tests (Ultrasound or MRI) as these tests may add significant information. A negative radiographic report should not delay biopsy if a dominant or clinically suspicious mass is present. Up to ten percent of cancers are not identified on mammography. A negative report may reinforce clinical impression. Adenosis and dense breasts may obscure an underlying neoplasm. False positive reports average 6 to 10%. Patient will receive a letter notifying them of these results.
== END ==
LOC: DI 02:20
PROVIDERS: PCP Nurse Practitioner Family; Visit Provider Nurse Practitioner Family
DX: Z12.31 Encounter for screening mammogram for malignant neoplasm of breast (principal); R92.323 Mammographic fibroglandular density, bilateral breasts
CPT/HCPCS: 77063; 77067

== ENCOUNTER → 2025-03-18 02:25 | Outpatient (CLI) | payer BC, SELFPAY ==
--- NOTE | 2025-03-18 | DI.MAMMO_ITS ---
Exam(s) MG MAMMO SCREEN CALL BACK UNI US BREAST LT COMPLETE EXAM: MG MAMMO SCREEN CALL BACK UNI-LEFT COMPLETE LEFT BREAST ULTRASOUND CLINICAL HISTORY: F/U ABNL MAMMO, ASYMMETRIC DENSITY POSSIBLE NODULE LT BREAST. TECHNIQUE: Unilateral LEFT BREAST spot mammographic images obtained with 3D tomosynthesisand utilizing computer aided detection (CAD). . Complete LEFT breast Ultrasound was also performed, including all 4 quadrants, the retroareolar region, and the ipsilateral axilla. COMPARISON: Prior mammograms were reviewed. This additional imaging was performed due to findings described on the recent screening mammogram of 03/15/2025. FINDINGS: DIAGNOSTIC MAMMOGRAM: Additional mammographic views performed todayrender this area less concerning and more similar in appearance to prior mammograms.. COMPLETE LEFT BREAST ULTRASOUND: Ultrasound performed today reveals no evidence of solid or significant cystic lesions in all 4 quadrants.. Scanning of the ipsilateral axilla reveals no significant adenopathy. IMPRESSION: 1. No radiographic evidence of malignancy in the left breast. 2. Negative complete left breast ultrasound Appropriate follow-up is keep this patient on a yearly mammogram schedule, with earlier imaging if a self detected breast change is noted. The patient was informed of these findings and recommendations by myself prior to leaving the department today. BI-RADS Category 2 - Benign Findings Breast Density - Category B - There are scattered areas of fibroglandular density. Breast density Category C or D implies that the patient has dense breast tissue. Dense breast tissue can make it harder to find cancer on a mammogram. Dense breast tissue is also associated with an increased risk of breast cancer. This information about the result of the mammogram report was provided to the patient to raise their awareness. Use this report when you speak with the patient about their risks for breast cancer, which includes their family history. At that time, you may recommend additional screening tests (Ultrasound or MRI) as these tests may add significant information. A negative radiographic report should not delay biopsy if a dominant or clinically suspicious mass is present. Up to ten percent of cancers are not identified on mammography. A negative report may reinforce clinical impression. Adenosis and dense breasts may obscure an underlying neoplasm. False positive reports average 6 to 10%. Patient will receive a letter notifying them of these results.
== END ==
LOC: DI 02:25
PROVIDERS: PCP Nurse Practitioner Family; Visit Provider Nurse Practitioner Family
DX: Z12.31 Encounter for screening mammogram for malignant neoplasm of breast (principal)
CPT/HCPCS: 76642; 77063; 77067

== ENCOUNTER 2025-03-30 19:08 | Outpatient (REF) | payer BC, SELFPAY ==
[2025-03-30 21:27] LABS: ALT 20 U/L (10-49); AST 19 U/L (<34); Albumin 4.5 g/dL (3.2-5.0); Alkaline Phosphatase 65 U/L (46-116); Anion Gap 6 mmol/L (3-11); BUN 21 mg/dL (9-23); Bilirubin, Total 0.40 mg/dL (0.2-1.2); CO2 28.0 mmol/L (20.0-31.0); Calcium 10.1 mg/dL (8.3-10.6); Chloride 108 mmol/L (98-107); Cholesterol 192 mg/dL (<200); Glucose 87 mg/dL (74-106); HDL Cholesterol 78 mg/dL (>40); Potassium 4.1 mmol/L (3.5-5.1); Sodium 142 mmol/L (136-145); Total Protein 7.2 g/dL (5.7-8.2)
== END 2025-03-30 19:09 | disposition home or self-care (01) ==
LOC: LBN 19:08
PROVIDERS: PCP Nurse Practitioner Family; Visit Provider Nurse Practitioner Family
DX: E78.2 Mixed hyperlipidemia (principal)
CPT/HCPCS: 80053; 80061

== ENCOUNTER → 2025-04-06 00:24 | Outpatient (CLI) | payer BC, SELFPAY ==
--- NOTE | 2025-04-06 09:37 | DI.RAD_ITS ---
Exam(s) XR SHOULDER RT COMPLETE 2+V EXAM: XR SHOULDER RT COMPLETE 2+V CLINICAL HISTORY: deformity post clavicle fracture,s42.031d. TECHNIQUE: 2D digital imaging was performed of the right shoulder. Five images were obtained. AP, Grashey, Y-view and axillary views were obtained. COMPARISON: CR,XR XR CLAVICLE RT from 09/09/2022 CR,XR XR SHOULDER RT COMPLETE 2+V from 09/09/2022 FINDINGS: BONES: No acute fracture is present. No bony destructive lesion is seen. JOINTS: No dislocation present. [id number] degenerative changes are seen at the acromioclavicular joint. There are mild degenerative changes seen at the glenohumeral joint. There is a small spur arising from the undersurface of the acromion. This may cause impingement on the rotator cuff. SOFT TISSUE: Normal. IMPRESSION: 1. No acute abnormality. 2. Degenerative and posttraumatic changes in the right shoulder. DATA REPOSITORY: RADIATION DOSE DELIVERED:
== END ==
LOC: DI 00:24
PROVIDERS: PCP Nurse Practitioner Family; Visit Provider Nurse Practitioner Family
DX: S42.031D Displaced fracture of lateral end of right clavicle, subsequent encounter for fracture with routine healing (principal); M19.111 Post-traumatic osteoarthritis, right shoulder
CPT/HCPCS: 73030